=== PATIENT | male | born 1950 | race Caucasian/White ===

== ENCOUNTER → 2016-08-01 | Outpatient (CLI) | payer BC, MEDICARE ==
[~2016-08-01] MED LIST: AMOXICILLIN500 MG PO; ASPIRIN LO-DOSE81 MG PO; BENADRYL25 MG PO; BRILINTA90 MG PO; BUMETANIDE2 MG PO; BYSTOLIC10 MG PO; CALCIUM 600 +1 EA12 PO; CALCIUM ACETAT667 MG PO; CATAPRES0.3 MG PO; COZAAR50 MG PO; CPAP INH; CYMBALTA60 MG PO; DELFLEX PERIT5000 M1; FENOFIBRATE150 MG PO; FORTAZ2 G1 DIALYSIS; GENTAMICIN SULF30 GM TOP; LASIX80 MG PO; LIPITOR10 MG PO; LOPRESSOR25 MG PO; MAG-OX-400(241400 MG PO; MAGNESIUM DR64 MG PO; MIRALAX17 GM PO; MYCOSTATIN 500,1 TAB PO; NEURONTIN300 MG PO; NITROSTAT0.4 MG SL; NORCO 5-325 MG1 TAB PO; NORVASC10 MG PO; PRAVASTATIN SOD10 MG PO; PROTONIX40 MG PO; SEROQUEL100 MG PO; TYLENOL325 MG PO; ZYLOPRIM300 MG PO; [UNRECOGNIZED DRUG - OTHER]
[2016-08-01 18:59] LABS: BILIRUBIN URINE NEGATIVE (NEGATIVE); BLOOD URINE 250 /UL (NEGATIVE); GLUCOSE URINE 100 mg/dL (NEGATIVE); KETONE URINE NEGATIVE (NEGATIVE); LEUKOCYTES URINE 500 /UL (NEGATIVE); NITRITE URINE NEGATIVE (NEGATIVE); PH URINE 6.5 (4.0-8.0); PROTEIN URINE 100 mg/dL (NEGATIVE); UROBILINOGEN URINE NORMAL (NORMAL)
[2016-08-01 19:04] LABS: PERITONEAL FLUID TURBIDITY CLEAR (CLEAR)
[2016-08-01 19:05] LABS: COLOR URINE YELLOW (YELLOW); TURBIDITY URINE 2+ (CLEAR)
[2016-08-01 19:08] LABS: RBC URINE FULL FIELD #/HPF (NEGATIVE); WBC URINE FULL FIELD #/HPF (NEGATIVE)
[2016-08-01 19:09] LABS: EPITHELIAL URINE 0-2 #/HPF (NEGATIVE)
[2016-08-01 19:10] LABS: BACTERIA URINE NEGATIVE (NEGATIVE); MUCUS URINE 1+ (NEGATIVE)
[2016-08-01 20:07] LABS: % PERITONEAL FLUID MONO/MACRO 85 % (0-0); % PERITONEAL FLUID NEUT 5 % (0-25)
== END | disposition disaster alternative care site (69) ==
LOC: GLAB 18:30
PROVIDERS: Internal Medicine Nephrology
DX: Z03.89 Encounter for observation for other suspected diseases and conditions ruled out (principal)

== ENCOUNTER → 2016-11-03 | Outpatient (CLI) | payer BC, MEDICARE | END | disposition disaster alternative care site (69) | LOC: GRAD 10-27 11:24 | DX: Z01.818 Encounter for other preprocedural examination (principal); N18.6 End stage renal disease; N26.1 Atrophy of kidney (terminal); Q61.02 Congenital multiple renal cysts; Z90.49 Acquired absence of other specified parts of digestive tract ==

== ENCOUNTER → 2016-11-26 | Outpatient (CLI) | payer BC, MEDICARE ==
--- NOTE | ~2016-11-26 | ECHO ---
Transthoracic Echocardiography Report (TTE) Demographics Patient Name SEVERO MCCRARY Date of Study 11/26/2016 Patient Number [id number] Visit Number [id number] Date of 1950 Room Number Gender Male Number Age 65 year(s) Referring John Neves Correspondence Transcriber Fabrice Campos RDCS, Physician Jovi Hernadez Physician Interpreting Jovi Hernadez Torch Heater Physician Supervising Ordering Jovi Hernadez MD/MLPatience Physician Nurse Stress Supervisor Braiding Conclusions Summary The estimated left ventricular ejection fraction is 65-70%. Basal septal hypertrophy Moderate concentric left ventricular hypertrophy Mildly elevated doppler flow velocities noted in mid cavity with peak gradient of 8 mm hg (no significant increase with valsalva). Normal right ventricle structure and function. Clinical correlation is recommended. Procedure Type of Study TTE procedure:2D Echocardiogram. Procedure Date Date: 11/26/2016 Start: 11:34 AM Study Location: Echo Lab Technical Quality: Adequate visualization Indications:Preop cardiac evaluation. Appropriate Use Criteria: 9 Patient Status: Routine HR: 94 bpm BP: 136/76 mmHg M-Mode/2D Measurements LV Diastolic Dimension: 3.98 cm LV Systolic Dimension: 2.1 cm LV Septum Diastolic: 1.43 cm LV PW Diastolic: 1.16 cm Cardiac Output: 6.2 l/min LA Dimension: 3.9 cm LVOT: 2 cm LVOT VTI: 21 cm RV Base: 2.91 cm LV Stroke volume: 65.94 ml RV Length: 6.91 cm TAPSE: 2.72 cm TDI-S': 21.2 cm/s Doppler Measurements AV Peak Velocity: 1.46 m/s MV Peak E-Wave: 0.63 m/s AV Peak Gradient: 8.53 mmHg MV Peak A-Wave: 1 m/s AV Mean Gradient: 7 mmHg MV E/A Ratio: 0.63 LVOT Peak Velocity: 1.1 m/s MV P1/2t: 109 msec TR Gradient:13.84 mmHg PV Peak Velocity: 1.17 m/s Estimated RAP:15 mmHg PV Peak Gradient: 5.48 mmHg Estimated RVSP: 29 mmHg Estimated PASP: 28.84 mmHg E' Septal Velocity: 0.03 m/s A' Septal Velocity: 0.11 m/s E' Lateral Velocity: 0.09 m/s A' Lateral Velocity: 0.12 m/s Findings Left Ventricle Basal septal hypertrophy Moderate concentric left ventricular hypertrophy Diastolic assessment reveals Grade I diastolic dysfunction. There appears to be a mid cavity obstruction with elevated velocities. Right Ventricle Normal right ventricle structure and function. Left Atrium Normal left atrial size. Right Atrium Normal right atrial size. Mitral Valve Mild mitral regurgitation by color Doppler. Aortic Valve Normal aortic valve structure and function. Tricuspid Valve Trivial tricuspid regurgitation by color Doppler. Pulmonic Valve Normal pulmonic valve structure and function. Pericardial Effusion No evidence of pericardial effusion. Miscellaneous Suboptimal subcostal window to evaluate the IVC and interatrial septum. Pleural Effusion No evidence of pleural effusion. Contractility Score LV regional wall motion:(0-Non visualized 1-Normal 2-Hypokinesis 3-Akinesis 4-Dyskinesis 5-Aneurysm) Signature dtt: ERI YOUNGER dtd: 11/26/16 1134 Physician Self Edit
--- NOTE | ~2016-11-26 | ESTC ---
Cardiac Perfusion Imaging Demographics Patient Name HERMANN Soto Gender Male Patient Number [id number] Race Visit Number [id number] Ethnicity Corporate ID Room Number Accession Number [id number] Height 66 inches Date of 1950 Weight 240 pounds Tesfaye Younger Date of study 11/26/2016 Physician Maricarmen Supervising /DANIEL MUÑOZ Technologist Víctor Hernadez Ordering Physician Stress technician submarine cable equipment Stress ECG Reading Jovi Nurse Rome Taylor RN Physician Maricarmen Medications Reviewed with Patient prior to Procedure. Procedure Admit Source:Other. Procedure Type: Nuclear Stress Test:Cardiolite Stress Test Procedure Start time: 11/26/2016 08:40 Indications: Pre surgical clearance. Risk Factors The patient risk factors include:obesity, hypertension, family history of premature CAD, untreated diabetes mellitus, dyslipidemia and renal failure currently treated with dialysis . Conclusions Summary Perfusion Images: The overall quality of the study is good. Left ventricular cavity is noted to be normal on the stress and rest studies. TID ratio is 1.14. There is no evidence of abnormal lung activity. The right ventricle is not visualized and cannot be assessed. Stress SPECT images and Rest SPECT images demonstrate homogenous tracer distribution throughout the myocardium except for small size area of decrease in uptake in the area involving the inferior wall on rest images consistent with artifact. Gated SPECT imaging reveals normal myocardial thickening and wall motion. The left ventricular ejection fraction was calculated to be 68%. Impression ECG portion of stress test is clinically negative for ischemia by diagnostic criteria. Myocardial perfusion imaging is probably normal. The basal inferior wall perfusion defect noted only on rest images with preserved wall motion is consistent with artifact. Overall left ventricular systolic function was normal without regional wall motion abnormalities. There are no previous studies for comparison . Stress Protocols Resting ECG Sinus rhythm Pre-stress physical exam: Patient assessed by Dr Younger prior to testing. Predicted HR: 156 bpm ECG Findings Non specific ST-T wave changes Arrhythmias No rhythm abnormality. Symptoms Mild SOB Stress Interpretation ECG portion of stress test is negative for ischemia by diagnostic criteria. Nuclear images are pending Imaging Results Summed scores - Summed stress score: 13 - Summed rest score: 18 - Summed difference score: -5 Stress ejection Ejection fraction:67 % EDV :97 ml ESV :32 ml Stroke volume :65 ml LV mass :133 gr Imaging Protocols Rest Stress Isotope:Tc99m Sestamibi IV Isotope: Tc99m Sestamibi IV Isotope dose:15.5 mCi Isotope dose:46.4 mCi Date:11/26/2016 07:20 Date:11/26/2016 08:58 Technique: SPECT Technique: Gated Supine SPECT Supine Scan Time:45-60 minutes post Scan Time:45-60 minutes post injection injection Procedure Medications - Regadenoson (Lexiscan) 0.4 mg IV over 10-15 sec. I.V. . Medications administered per verbal order and read back to physician prior to administration. Medical History Admission Data Admission date: 11/26/2016 Admission Time: 06:48 Hospital Status: Outpatient. Signatures dtt: MARICARMEN YOUNGER dtd: 11/26/16 0840 Physician Self Edit
== END | disposition disaster alternative care site (69) ==
LOC: GRAD 06:48
DX: Z01.818 Encounter for other preprocedural examination (principal); E66.9 Obesity, unspecified; E11.9 Type 2 diabetes mellitus without complications; E78.5 Hyperlipidemia, unspecified; N19 Unspecified kidney failure; I10 Essential (primary) hypertension; I51.7 Cardiomegaly; R94.39 Abnormal result of other cardiovascular function study; Z82.49 Family history of ischemic heart disease and other diseases of the circulatory system
CPT/HCPCS: A9500; J2785

== ENCOUNTER 2016-12-10 08:59 | Outpatient (CLI) | payer BC, MEDICARE ==
[~2016-12-10] VITALS: Ht 167.6 cm; Wt 110.4 kg
--- NOTE | ~2016-12-10 | CATH ---
Cardiac Diagnostic + PCI Report Demographics Patient Name HERMANN Soto Gender Male Date of 1950 Age 65 year(s) Patient Number [id number] Date of Study 12/10/2016 Visit Number [id number] Room Number G[address] [place] [id number] Ht 167.64 cm Wt 110.4 kg Referring Shanicemarilee Silvino Neves Primary Physician Physician Performing [facility] Secondary Physician Physician Dianelys Hernadez Diagnostic [facility] Assisting Physician Physician Maricarmen Interventional [facility] [place] Physician Supervisor Fabrication Department Physician Dianelys CHAMBERLAIN Findings and Conclusions Diagnostic Findings and Conclusion Pt is a 65 year old male referred for cardiac cath as part of renal transplant work up. Findings L Main: no significant epicardial disease LAD: Proximal LAD - 40% stenosis, IFR = .93 Mid/distal LAD - 80% stenosis, IFR = .87 L Cx: no significant epicardial disease RCA: Dominant, no significant epicardial disease Diagnostic Recommendations The mid/distal LAD lesion is physiologically significant and revascularization is recommended. Medical therapy for proximal LAD lesion since iFR is 0.93. Interventional Findings and Conclusion S/P PCI pf mid/distal LAD with 3 drug eluting stents, overlapped portion of stents post dilated with NC balloon 2.75/12 balloon at 18 candie. Interventional Recommendations Patient will be observed overnight. Continue current medications. Patient has been instructed to not lift anything more than 5 pounds for 1 week. Aggressive risk factor management. Aggressive medical therapy for coronary artery disease. Dual Anti-platelet therapy. Optimization of medical therapy as an outpatient. Referral to Cardiac Rehabilitation now and at discharge . Patient had severe adverse reaction with statin medications in the past, will check LDL and he may be an good candidate for PCSK9 inhibitor therapy. Not on avel i given he has ESRD on dialysis. Procedure Description The patient was brought to the diagnostic cardiac catheterization-EP laboratory in the fasting, non-sedated state. Informed consent was obtained in the written and verbal form after the risks and benefits were explained. The patient had no further questions and agreed to proceed. The planned puncture-incision site(s) were shaved and prepped with ChloraPrep and draped in the usual sterile manner. Conscious sedation, supplemental oxygen, and pain control medications were delivered by a registered nurse under physician guidance. Surface ECG rhythm, blood pressure measurement, and pulse oximetry were monitored throughout the procedure. Arterial access. The access site was infiltrated with lidocaine. The vessel was entered with the Seldinger technique. A sheath was advanced into the vessel and used for catheter placement. Selective left coronary angiography. A catheter was advanced into the left coronary vessel ostium under Fluoroscopic guidance. Contrast was injected by hand. Images were obtained in multiple projections. Selective right coronary angiography. A catheter was advanced into the right coronary vessel ostium under fluoroscopic guidance. Contrast was injected by hand. Images were obtained in multiple projections. Left heart catheterization. A catheter was advanced across the aortic valve to the left ventricle under fluoroscopic guidance. Resting hemodynamics were obtained. iFR measurement was performed. The vessel was entered with a guiding catheter. The iFR wire was normalized and then advanced across the lesion. Measurements were taken. Angioplasty and Stent Placement: A guiding catheter was used to intubate the vessel. A 0.14 wire was then used to cross the lesion. A balloon catheter was placed across the lesion and inflated. The balloon catheter was then removed. A Drug Eluting Stent was placed and inflated. Post placement angiograms were performed. Arterial artery hemostasis was achieved. The patient was transferred to a regular nursing floor via cart accompanied by a nurse. The patient left the laboratory in stable condition. Diagnostic Cath Status: Elective Interventional Cath Status: Urgent Procedure Procedure Type Diagnostic procedure:Angiography:, Coronary Angios /[facility] PCI procedure:Drug Eluting Coronary Stent:, LAD, PTCA:, LAD Indications: Transplant Follow Up. The procedure was explained in detail to the patient. Risks, complications and alternative treatments were reviewed. Written consent was obtained. Medications Reviewed with Patient prior to Procedure. Angiographic Findings Dominance: Right Cardiac Arteries and Lesion Findings LMCA: Normal LAD: Diag small Lesion on Mid LAD: Mid subsection.80% stenosis 36 mm length reduced to 0%. Pre procedure SHARI II flow was noted. Post Procedure SHARI III flow was present. The guidewire cross was successful.The lesion was diagnosed as a low risk lesion.Culprit lesion. FFR + + + + !FFR !Stage/Medication !Dosage ! + + + + !0.87 ! ! ! + + + + Devices used - LangticeraYbrant Digital Pressure Wire. Number of passes: 1. - Runthrough NS .014 x 180. Number of passes: 1. - Emerge Balloon 2.5 x 20. 1 inflation(s) to a max pressure of: 6 candie. - Promus Premier 2.5 x 24 Stent. 2 inflation(s) to a max pressure of: 10 candie. - Promus Premier 2.75 x 12 Stent. 2 inflation(s) to a max pressure of: 10 candie. - NC Emerge Balloon 2.5 x 12. 4 inflation(s) to a max pressure of: 24 candie. - NC Emerge Balloon 2.75 x 12. 2 inflation(s) to a max pressure of: 18 candie. - Promus Premier 2.75 x 12 Stent. 2 inflation(s) to a max pressure of: 12 candie. Lesion on Prox LAD: Proximal subsection.60% stenosis . Lesion on 1st Diag: Proximal subsection.50% stenosis . LCx: Lesion on Mid CX: Mid subsection.30% stenosis . RCA: Normal PL normal PDA normal Ramus: Normal Coronary Tree Procedure Data Procedure Date Date: 12/10/2016Start: 10:59 AMEnd: 12:42 PM Entry Locations - Retrograde Percutaneous access was performed through the Right Radial artery (Primary location). A 6 Fr sheath was inserted. Hemostasis was successfully obtained using Mechanical Compression. Closure Comments: 12 ml. Procedure Medications Order and Administration + + + + + !Time !Medication !Dosage !Route ! + + + + + !12/10/2016 10:56 AM!Fentanyl !25 mcg !I.V. ! + + + + + !12/10/2016 11:03 AM!Radial Verapamil !2.5 mg !I.A. ! + + + + + 12/10/2016 11:04 AM!Radial Nitroglycerin !100 mcg !I.A. ! + + + + + 12/10/2016 11:05 AM!Heparin (ACC_3) !5000 units!I.V. bolus ! + + + + + 12/10/2016 11:15 AM!Heparin (ACC_3) !2000 units!I.V. bolus ! + + + + + !12/10/2016 11:31 AM!Angiomax (Bivalirudin) (ACC_5)!82.5 mg !I.V. bolus ! + + + + + !12/10/2016 11:33 AM!Angiomax (Bivalirudin) (ACC_5)!0.25 mg/kg!I.V. drip ! + + + + + !12/10/2016 11:34 AM!Nitroglycerin !200 mcg !I.C. ! + + + + + !12/10/2016 11:32 AM!Oxygen !2 l/min !NC ! + + + + + !12/10/2016 12:24 PM!Oxygen ! !NC ! + + + + + !12/10/2016 12:25 PM!Brilinta (Ticagrelor) (ACC_20)!180 mg !P.O. ! + + + + + !12/10/2016 12:30 PM!Angiomax (Bivalirudin) (ACC_5)! !I.V. drip ! + + + + + Devices Used - A5 Fr. BS JR 4 Diag. Catheterwas used for:Right coronary angiography. - A5 Fr. BS JL 3.5 Diag. Catheter. - A6 Fr. EBU 3.5 Guide Catheterwas used for:Fractional Flow Magnet measurments. - A6 Fr. EBU 4 Guide Catheter. Contrast Material - Isovue [id number] ml Fluoroscopy Time: Diagnostic: 23:48 minutes. Total: 23:48 minutes. Fluoroscopy Dose: Diagnostic: 3987 mGy. Total: 3987 mGy. Estimated Blood Loss: 30 ml. Additional [facility] PCI Information PCI Indication:Other. Medical History Performed Procedures and Imaging Results - Stress testing with SPECT MPIwas performed on 11/26/2016. Results were: Negative. Allergies - Other:(statin, ambien). Risk Factors The patient risk factors include:peripheral arterial disease, cerebrovascular disease, hypertension, family history of premature CAD, diabetes mellitus, last creatinine: 1 mg/dl, creatinine clearance: 116.53 ml/min, dyslipidemia and currently treated with dialysis. Admission Data Admission Date: 12/10/2016 Admission Time: 08:59 AM Admit Source: Other Insurance Payors: Private health insurance. Admission Medications + +------+------+ + + + + !Medication !Dosage!Times !Last !Last !Administered !Comments ! ! ! !Per !Delivery !Delivery ! ! ! ! ! !Day !Date !Time ! ! ! + +------+------+ + + + + !Beta ! ! ! ! !Yes ! ! !Renuka ! ! ! ! ! ! ! !(any) ! ! ! ! ! ! ! + +------+------+ + + + + !Aspirin ! ! ! ! !Yes ! ! !(any) ! ! ! ! ! ! ! + +------+------+ + + + + Clinical Evaluation Leading to Procedure - There were no CAD presentation symptoms. - There were no anginal symptoms. Anti-anginal medications were prescribed during the past two weeks. The medication is: Beta Blockers. - The reason for the patient's laborer orchard visit is pre-operative evaluation before non-cardiac surgery. Hemodynamics Condition: Rest O2 Consumption: Estimated: 269.10Heart Rate: 90 bpm Pressures (mmHg) +-----+ + !Site !Pressure ! +-----+ + !LV !124/0 ,10 ! +-----+ + !LV !121/-1 ,7 ! +-----+ + !AO !112/67 (83) ! +-----+ + !LV !121/0 ,9 ! +-----+ + !AO !108/75 (91) ! +-----+ + !AO !114/74 (93) ! +-----+ + !AO !108/69 (85) ! +-----+ + !AO !139/83 (111) ! +-----+ + Valve Gradients and Areas + +---------+---------+---------+ +---------+ + !Valve !Peak !Mean !Area !Index !Flow !Source ! + +---------+---------+---------+ +---------+ + !Aortic !8 !10 ! ! ! ! ! + +---------+---------+---------+ +---------+ + !Aortic !8 !10 ! ! ! ! ! + +---------+---------+---------+ +---------+ + Shunts Oxygen Values O2 Capacity 170 O2 Consumption 269.1 Signatures dtt: DIANELYS KURTZ dtd: 12/10/16 1059 Physician Self Edit
--- NOTE | ~2016-12-10 | CON ---
PATIENT'S NAME: [facility] AGE: 65 Y [address] ROOM: [place] [id number] LOCATION: GPCU ADMIT DATE: 12/10/2016 Consultation DISCHARGE DATE: 12/11/2016 FAMILY PHYSICIAN: Silvino Lopez MD ATTENDING PHYSICIAN: Maricarmen Espana DATE OF CONSULTATION: 12/10/2016 REFERRING PHYSICIAN: Alin Hwang MD NEPHROLOGY CONSULTATION NOTE REQUESTING PHYSICIAN: Dr. Espana. REASON FOR CONSULTATION: End-stage renal failure patient, currently on peritoneal dialysis. 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 He is currently on peritoneal dialysis. The patient was referred for a kidney transplant evaluation. I believe that his stress test was positive, and he underwent a cardiac catheterization with stent placement in the LAD. The patient is due for routine dialysis treatment today, and therefore, I have been asked to see him for a Nephrology consultation. PAST MEDICAL HISTORY: End-stage renal failure, peritoneal dialysis; E. coli peritonitis; obstructive sleep apnea; hypertension; depressive illness; constipation; and coronary artery disease. PAST SURGICAL HISTORY: Peritoneal dialysis catheter placement, cholecystectomy, left upper arm AV fistula placement. ALLERGIES: ALLERGIC TO STATIN AND AMBIEN. MEDICATIONS: 1. Allopurinol 300 mg q.h.s. 2. Aspirin 81 mg a day. 3. PhosLo 667 mg 3 times a day with food. 4. Cymbalta 60 mg a day. 5. Gentamicin cream to the side. 6. Magnesium oxide 400 mg twice a day. PATIENT'S NAME: [facility] AGE: 65 Y [address] ROOM: [address] [place] [id number] LOCATION: GPCU ADMIT DATE: 12/10/2016 Consultation DISCHARGE DATE: 12/11/2016 FAMILY PHYSICIAN: Silvino Lopez MD ATTENDING PHYSICIAN: Maricarmen Espana 7. Bystolic 5 mg a day. 8. Protonix 40 mg a day. 9. Seroquel 100 mg p.o. q.h.s. 10. MiraLAX 17 g every day. 11. CPAP at night. 12. Benadryl p.r.n. 13. Bumex 6 mg every morning. REVIEW OF SYSTEMS: GENERAL: He denies any fever, chills, or rigors. HEENT: Denies any sore throat or sinus congestion. CARDIOVASCULAR: Denies any chest pain, dyspnea on exertion. RESPIRATORY: Denies any shortness of breath, cough, or wheezing. GI: Denies nausea or vomiting. : Denies any dysuria or frequency. MUSCULOSKELETAL: No joint pain or swelling. SKIN: Denies any rash or pruritus. Denies any allergies or hay fever. SOCIAL HISTORY: The patient lives at home with his . No history of tobacco or alcohol use. FAMILY HISTORY: Positive for end-stage renal failure in the patient's mother. PHYSICAL EXAMINATION: GENERAL APPEARANCE: This is a 65-year-old, white male, sitting in the hospital bed, not in acute distress. VITAL SIGNS: Temperature 97.8, pulse is 89, systolic blood pressure 100, diastolic 70, respiratory rate of 18. HEENT: Head is normocephalic. Pupils are round and equal. Normal eyelid and conjunctivae. Oral cavity clear. Moist mucosa. NECK: Trachea central. No thyromegaly. Unable to evaluate jugular venous . HEART: Sounds are audible. There is no gallop or murmur. The patient has left upper arm AV fistula with positive thrill. ABDOMEN: Soft. He has a peritoneal dialysis catheter with clean exit site. EXTREMITIES: No clubbing or cyanosis. SKIN: No sign of vasculitis. Lymph: I did not examine lymphatics. LABORATORY DATA: Glucose 146, BUN 58, creatinine 9.3, sodium 141, potassium 4.6, chloride 102, bicarb 30, albumin of 2.5. Hemoglobin 12.5, hematocrit 36.1. ASSESSMENT: PATIENT'S NAME: HERMANN, [facility] AGE: 65 Y [address] ROOM: G[address] [place], [place] [address] LOCATION: GPCU ADMIT DATE: 12/10/2016 Consultation DISCHARGE DATE: 12/11/2016 FAMILY PHYSICIAN: Silvino Lopez MD ATTENDING PHYSICIAN: Maricarmen Espana 1. End-stage renal failure. 2. Peritoneal dialysis. 3. Obesity. 4. History of Escherichia coli peritonitis. 5. Coronary artery disease. 6. Diabetes mellitus. PLAN: I will arrange for this patient's peripheral dialysis tonight. He will be on 2 L of filled volume for 5 cycles over 10 hours. We will use all 2.5% solution. He does not use any heparin in the PD fluid. I would like to thank Dr. Mir for allowing me to participate in this patient's care. M MD GILLES CAICEDO/huey /[id number] d: 12/12/161954 t: 01/01/17 1103, CONSULTATION REPORT
[~2016-12-10 08:59] MED LIST changes: -BRILINTA90 MG PO; -FENOFIBRATE150 MG PO; -LIPITOR10 MG PO; -LOPRESSOR25 MG PO; -NITROSTAT0.4 MG SL; -PRAVASTATIN SOD10 MG PO
[2016-12-10 09:36] LABS: BASOPHIL # 0.1 K/uL (0.0-0.2); BASOPHIL % 0.5 %; EOSINOPHIL # 0.3 K/uL (0.0-0.5); HEMATOCRIT 36.1 % (37.0-53.0); HEMOGLOBIN 12.5 g/dL (11.0-16.0); IMMATURE GRANULOCYTE # 0.1 K/uL (0.0-0.3); IMMATURE GRANULOCYTE % 1.2 %; LYMPHOCYTE # 1.3 K/uL (0.8-4.0); LYMPHOCYTE % 13.1 %; MCH 36.1 pg (27.0-34.0); MCHC 34.6 gm/dL (32.0-36.5); MCV 104.3 fl (83.0-98.0); MONOCYTE # 0.7 K/uL (0.0-1.0); MONOCYTE % 7.7 %; MPV 10.5 fl (9.4-12.4); NEUTROPHIL # (ANC) 7.1 K/uL (1.4-9.0); NEUTROPHIL % 74.5 %; NRBC % 0 /100WBC (0-0.00); PLATELET COUNT 238 K/uL (150-450); RBC 3.46 M/uL (3.50-5.50); WBC 9.5 K/uL (4.0-11.0)
[2016-12-10 09:41] LABS: INR - (THERAPEUTIC) 1.02 (0.92-1.07); PROTIME 10.7 SECONDS (9.8-11.4)
[2016-12-10 09:51] LABS: ALBUMIN 2.5 gm/dL (3.5-5.0); ALK PHOS 140 IU/L (33-138); ALT 22 IU/L (12-78); ANION GAP 13.6 (10.0-19.0); AST 15 IU/L (10-40); CALCIUM 8.4 mg/dL (8.5-10.5); CHLORIDE 102 mMol/L (96-110); CO2 30 mMol/L (22-32); POTASSIUM 4.6 mMol/L (3.7-5.1); SODIUM 141 mMol/L (135-145); TOTAL BILIRUBIN 0.4 mg/dL (0.0-1.5); TOTAL PROTEIN 6.5 g/dL (6.0-8.4)
[2016-12-10 09:55] LABS: BLOOD UREA NITROGEN 58 mg/dL (6-24); CREATININE 9.3 mg/dL (0.6-1.3)
[2016-12-11 08:25] LABS: ALBUMIN 2.2 gm/dL (3.5-5.0); ALK PHOS 109 IU/L (33-138); ALT 19 IU/L (12-78); CALCIUM 7.9 mg/dL (8.5-10.5); CHLORIDE 103 mMol/L (96-110); CO2 23 mMol/L (22-32); SODIUM 140 mMol/L (135-145); TOTAL PROTEIN 5.9 g/dL (6.0-8.4)
[2016-12-11 08:26] LABS: ANION GAP 18.2 (10.0-19.0); AST 18 IU/L (10-40); BLOOD UREA NITROGEN 57 mg/dL (6-24); CREATININE 9.1 mg/dL (0.6-1.3); POTASSIUM 4.2 mMol/L (3.7-5.1); TOTAL BILIRUBIN 0.3 mg/dL (0.0-1.5)
[2016-12-11 08:36] LABS: PERITONEAL FLUID TURBIDITY CLEAR (CLEAR)
[2016-12-11 09:55] LABS: % PERITONEAL FLUID MESO 7 % (0-0); % PERITONEAL FLUID MONO/MACRO 71 % (0-0); % PERITONEAL FLUID NEUT 19 % (0-25)
[2016-12-11] MEDS ORDERED: BRILINTA90 MG PO (11:31)
[2016-12-11] MEDS ORDERED: NITROSTAT0.4 MG SL (11:32)
[2016-12-11] MEDS ORDERED: LIPITOR10 MG PO (11:33)
[2016-12-11] MEDS ORDERED: LOPRESSOR25 MG PO (11:36)
[2016-12-11] MEDS ORDERED: CPAP INH (11:42)
[2016-12-11] MEDS ORDERED: FENOFIBRATE150 MG PO (11:42)
[2016-12-11] MEDS ORDERED: PRAVASTATIN SOD10 MG PO (12:12)
== END 2016-12-11 12:50 | disposition disaster alternative care site (69) ==
LOC: GPCU 08:59 → GCAT 08:59 → GPCU 11:44 → GCAT 12-11 12:50
PROVIDERS: Internal Medicine Interventional Cardiology; Internal Medicine Nephrology
PROC: 4A023N7 Measurement of Cardiac Sampling and Pressure, Left Heart, Percutaneous Approach (ICD-10-PCS; principal; 2016-12-10)
PROC: B216YZZ Fluoroscopy of Right and Left Heart using Other Contrast (ICD-10-PCS; 2016-12-10)
PROC: 027034Z Dilation of Coronary Artery, One Artery with Drug-eluting Intraluminal Device, Percutaneous Approach (ICD-10-PCS; 2016-12-10)
PROC: 4A033BC Measurement of Arterial Pressure, Coronary, Percutaneous Approach (ICD-10-PCS; 2016-12-10)
DX: Z01.818 Encounter for other preprocedural examination (principal); I25.10 Atherosclerotic heart disease of native coronary artery without angina pectoris; I73.9 Peripheral vascular disease, unspecified; I10 Essential (primary) hypertension; E11.9 Type 2 diabetes mellitus without complications; E78.5 Hyperlipidemia, unspecified; R94.31 Abnormal electrocardiogram [ECG] [EKG]; Z82.49 Family history of ischemic heart disease and other diseases of the circulatory system; Z88.8 Allergy status to other drugs, medicaments and biological substances
CPT/HCPCS: C1725; C1769; C1874; C1887; C9600; J0583; J1644; J2001; J2250; J3010; J7030; J7060